=== PATIENT | male | born 1980 ===

== ENCOUNTER 2017-08-04 03:49 | Emergency (ER) | payer SELFPAY ==
[2017-08-04 03:49] VITALS: BMI 48.5
[2017-08-04 04:10] VITALS: TEMP 99.5
[2017-08-04 06:07] VITALS: BP 122/78; PULSE 86; RESP 20; O2SAT 93
--- NOTE | 2017-08-04 06:11 | ED PDOC ---
HPI: Nose Bleed Time Seen by Provider: 08/04/17 04:03 Chief Complaint (Nursing): ENT Problem Chief Complaint (Provider): nose bleed History Per: Patient History/Exam Limitations: no limitations Onset/Duration Of Symptoms: Days (1x) Current Symptoms Are (Timing): Better Location Of Bleeding: Left Nare Anticoagulant/Antiplatlet Use?: No Recent Aspirin Use: No Additional Complaint(s): 36 year old male presents to the ED complaining of left nostril bleed onset yesterday. Currently, there is no bleeding in the ED. Denies of taking Aspirin or anticoagulants. Denies any other complaints in the ED. PMD: Timothy Martinez Past Medical History Reviewed: Historical Data, Nursing Documentation, Vital Signs Vital Signs: Last Vital Signs Temp 99.5 F 08/04/17 04:04 Pulse 86 08/04/17 06:05 Resp 20 08/04/17 06:05 BP 122/78 08/04/17 06:05 Pulse Ox 93 L 08/04/17 06:05 - Medical History PMH: HTN, Hypothyroidism - Surgical History Surgical History: No Surg Hx - Family History Family History: States: No Known Family Hx - Home Medications Home Medications: Ambulatory Orders Medication Instructions Recorded Ciprofloxacin HCl [Cipro] 500 mg PO Q12H #14 tab 03/08/15 Clindamycin [Cleocin] 150 mg PO Q6H #28 cap 03/08/15 Hydrochlorothiazide 25 mg PO DAILY #30 tab 03/08/15 Levothyroxine [Synthroid] 50 mcg PO DAILY #0 tab 03/08/15 Oxymetazoline 0.05% [Oxymetazoline 1 ml NS BID #1 bottle 08/04/17 HCl 30 Ml] Sodium Chloride Nasal [place] [Nolic 1 ml NS BID #1 bottle 08/04/17 Nasal [place]] - Allergies Allergies/Adverse Reactions: Allergies Allergy/AdvReac Type Severity Reaction Status Date / Time No Known Allergies Allergy Verified 08/04/17 04:04 Review of Systems ROS Statement: Except As Marked, All Systems Reviewed And Found Negative ENT: Positive for: Nose Discharge (left nostril bleed ) Psych: Negative for: Suicidal ideation (homicidal ideation) Physical Exam - Reviewed Nursing Documentation Reviewed: Yes Vital Signs Reviewed: Yes - Physical Exam Appears: Positive for: Well, Non-toxic, No Acute Distress Head Exam: Positive for: ATRAUMATIC, NORMAL INSPECTION, NORMOCEPHALIC Skin: Positive for: Normal Color, Warm, Dry Eye Exam: Positive for: EOMI ENT: Positive for: Normal ENT Inspection (no active bleed and no dry blood in nose or posterior pharynx), Other (several tiny errotin of right nostril) Cardiovascular/Chest: Positive for: Regular Rate, Rhythm Respiratory: Negative for: Respiratory Distress Extremity: Positive for: Normal ROM Neurologic/Psych: Positive for: Alert, Oriented - ECG O2 Sat by Pulse Oximetry: 93 (RA) Pulse Ox Interpretation: Normal Medical Decision Making Medical Decision Making: Time: 402 Initial Impression: Nose bleed Initial Plan: --Reevaluation Patient is stable for discharge. Scribe Attestation: Documented by Ezekiel Krause, acting as a scribe for Matteo Lindsey MD Provider Scribe Attestation: All medical record entries made by the Scribe were at my direction and personally dictated by me. I have reviewed the chart and agree that the record accurately reflects my personal performance of the history, physical exam, medical decision making, and the department course for this patient. I have also personally directed, reviewed, and agree with the discharge instructions and disposition. Disposition - Clinical Impression Clinical Impression: Nosebleed, symptom - Patient ED Disposition Is Patient to be Admitted: No Doctor Will See Patient In The: Office Counseled Patient/Family Regarding: Studies Performed, Diagnosis - Disposition Referrals: Timothy Martinez MD [Staff Provider] - Disposition: Routine/Home Disposition Time: 06:00 Condition: GOOD Additional Instructions: Return for worsening. take your medications as instructed. Prescriptions: Oxymetazoline 0.05% [Oxymetazoline HCl 30 Ml] 1 ml NS BID #1 bottle Sodium Chloride Nasal [place] [Nolic Nasal [place]] 1 ml NS BID #1 bottle Instructions: Nosebleeds Forms: [facility] ED School/Work Excuse Print Language: THAI
== END 2017-08-04 06:05 | disposition home or self-care (01) ==
LOC: H.ER 03:49
DX: R04.0 Epistaxis (principal); E03.9 Hypothyroidism, unspecified; I10 Essential (primary) hypertension